=== PATIENT | male | born 1965 | race Caucasian/White ===

== ENCOUNTER 2017-08-21 14:26 | Emergency (ER) | payer MEDICAID ==
[2017-08-21] MEDS ORDERED: Sodium Chloride 0.9% 10 ML Syringe FLUSH PRN (14:33)
[2017-08-21 14:37] VITALS: BP 140/104
--- NOTE | 2017-08-21 15:18 | CT ---
Head CT Technique: Multiple axial sections through the brain were obtained. Intravenous contrast was not utilized. Comparison: No previous intracranial imaging. Findings: Ventricles along with basal cisterns and sulci over the convexities are mildly prominent. No abnormal parenchymal densities are seen. No evidence of intracranial hemorrhage. No midline shift or mass effect is seen. Bone window settings were reviewed which shows mild mucosal thickening within both maxillary sinuses and within the ethmoid sinuses. No air-fluid levels are seen within the paranasal sinuses. No acute calvarial abnormality is seen. Impression: 1. Sinus findings most likely representing mild chronic sinusitis. 2. Mild generalized atrophy. 3. No acute intracranial abnormality is appreciated. Diagnostic code #2
--- NOTE | 2017-08-21 15:42 | CT ---
CT cervical spine Technique: Multiple axial sections were obtained from above the C1 level inferiorly to the top of T2. Reconstructed sagittal and coronal images were reviewed. Comparison: No prior cervical spine imaging. Findings: Degenerative change is noted at C1-C2. Mild disc space narrowing is noted at C3-C4. Moderate to severe disc space narrowing is noted at C4-C5 with anterior plate and screws. Mild disc space narrowing at C5-C6 and C6-C7. Disc protrusion is seen into the superior C7 vertebral endplate. Mild diffuse degenerative change is noted within the apophyseal joints. Lucent defect with offset of the lamina at C7 on the left side. This appears to represent an old fracture as the ends are well corticated or could represent a developmental anomaly. This does not appear to be acute. Mild bilateral neural foraminal stenosis noted at C5-C6. Other neural foramina are fairly well patent. No bony central canal stenosis is seen. No abnormal subluxation is seen. AP view shows degenerative spurring within the uncovertebral joints at C4-C5, C5-C6 and C6-C7. Impression: 1. Lucent defect with offset within the left lamina at C7. As mentioned above, this either represents an old fracture or is developmental. 2. Prior surgery at C4-C5. 3. Mild degenerative change as noted above. 4. Nothing acute is appreciated on CT study of the cervical spine. Diagnostic code #3
[2017-08-21] MEDS ORDERED: LORazepam 2 MG/ML SDV IVPUSH ONE (16:00)
--- NOTE | 2017-08-21 16:07 | EDM.PDOC ---
ED HPI GENERAL MEDICAL PROBLEM - General Chief Complaint: Neuro Symptoms/Deficits Stated Complaint: [facility] Time Seen by Provider: 08/21/17 14:33 Source of Information: Reports: Patient, EMS History Limitations: Reports: No Limitations - History of Present Illness INITIAL COMMENTS - FREE TEXT/NARRATIVE: The patient came by [facility] ambulance for a seizure. He was at the [facility] and they noticed he was shaking and then he started having a tonic clonic seizure. That lasted a few minutes. EMS arrived and they gave him ativan 2mg IV. He was post ictal on arrival. He says for the past week he was drinking heavy with his brother. He drinks vodka and he last drank last night. He did hit his head. He is in a c-collar and backboard when he arrives. He has no fever, chills, cough, chest pain, shortness of breath, abdominal pain, or nausea. He has a history of neck surgery. Onset: Sudden Duration: Minutes: Location: Reports: Generalized Severity: Severe Improves with: Reports: None Worsens with: Reports: None Associated Symptoms: Reports: Headaches. Denies: Chest Pain, Cough, Fever/ Chills, Nausea/Vomiting, Shortness of Breath Treatments MAINTENANCE AND CUSTODIAN SUPERVISOR: Reports: Other Medication(s) Other Treatments MAINTENANCE AND CUSTODIAN SUPERVISOR: ativan by [facility] - Related Data Allergies Allergy/AdvReac Type Severity Reaction Status Date / Time Penicillins Allergy Other Verified 08/21/17 14:38 Home Meds: Home Meds Lisinopril 40 mg PO DAILY 09/06/15 [History] Folic Acid 1 mg PO BEDTIME tablet 09/07/15 [Rx] LORazepam [Ativan] 1 mg IVPUSH Q2H PRN #2 vial 09/07/15 [Rx] Multivitamins,Therapeutic [Thera] 1 each PO BEDTIME tablet 09/07/15 [Rx] Nicotine [Habitrol] 21 mg TRDERM DAILY patch 09/07/15 [Rx] Thiamine [Vitamin B-1] 100 mg PO BEDTIME tablet 09/07/15 [Rx] cloNIDine [Catapres] 0.1 mg PO Q8H PRN #0 tablet 09/07/15 [Rx] Ondansetron [Zofran ODT] 4 mg PO Q6H PRN #20 tab.dis 08/21/17 [Rx] Past Medical History - Past Health History Medical/Surgical History: Denies Medical/Surgical History HEENT History: Reports: Allergic Rhinitis Cardiovascular History: Reports: Hypertension Respiratory History: Reports: None Gastrointestinal History: Reports: None Genitourinary History: Reports: None Musculoskeletal History: Reports: None Neurological History: Reports: None Psychiatric History: Reports: Addiction, Depression, Suicidal Ideation Endocrine/Metabolic History: Reports: None Hematologic History: Reports: None Immunologic History: Reports: None Oncologic (Cancer) History: Reports: None Dermatologic History: Reports: None - Infectious Disease History Infectious Disease History: Reports: None - Past Surgical History Musculoskeletal Surgical History: Reports: Other (See Below) Social & Family History - Family History Family Medical History: Noncontributory Cardiac: Reports: Other (See Below) Other Cardiac Family History: valve replacement Oncologic: Reports: Esophageal, Lung, Renal - Tobacco Use Smoking Status *Q: Unknown Ever Smoked Years of Tobacco use: 30 Packs/Tins Daily: 1 - Caffeine Use Caffeine Use: Reports: Coffee - Alcohol Use Days Per Week of Alcohol Use: 7 Number of Drinks Per Day: 10 Total Drinks Per Week: 70 - Recreational Drug Use Recreational Drug Use: Yes Recreational Drug Type: Reports: Amphetamines (Speed), Marijuana/Hashish ED ROS GENERAL - Review of Systems Review Of Systems: See Below Constitutional: Reports: No Symptoms HEENT: Reports: No Symptoms Respiratory: Reports: No Symptoms Cardiovascular: Reports: No Symptoms Endocrine: Reports: No Symptoms GI/Abdominal: Reports: No Symptoms : Reports: No Symptoms Musculoskeletal: Reports: No Symptoms - Physical Exam Exam: See Below Exam Limited By: No Limitations General Appearance: Alert, No Apparent Distress Ears: Normal External Exam Nose: Normal Inspection Throat/Mouth: Other (Abrasion to the tongue) Head Exam: Other (Abrasion to the left side of his head) Neck: Normal Inspection, Supple, Non-Tender Respiratory/Chest: No Respiratory Distress, Lungs Clear, Normal Breath Sounds Cardiovascular: Normal Peripheral Pulses, Regular Rate, Rhythm, No Edema, No Murmur GI/Abdominal: Soft, Non-Tender, No Organomegaly, No Mass Neuro Exam (Abbreviated): Alert, Oriented, No Motor/Sensory Deficits Extremities: Normal Inspection Course - Vital Signs Last Recorded V/S: Last Vital Signs Temp 97.1 F 08/21/17 14:33 Pulse 117 H 08/21/17 14:33 Resp 18 08/21/17 14:33 BP 140/104 H 08/21/17 14:33 Pulse Ox 94 L 08/21/17 14:40 - Orders/Labs/Meds Orders: Active Orders 24 hr Category Date Time Status Cardiac Monitoring [RC] . DIRECTED Care 08/21/17 14:33 Active Peripheral IV Care [RC] . DIRECTED Care 08/21/17 14:34 Active Sodium Chloride 0.9% [Saline Flush] Med 08/21/17 14:33 Active 10 ml FLUSH ASDIRECTED PRN Peripheral IV Insertion Adult [OM.PC] Stat Oth 08/21/17 14:33 Ordered Medication Orders Sodium Chloride (Saline Flush) 10 ml FLUSH ASDIRECTED PRN PRN Reason: Keep Vein Open Last Admin: 08/21/17 14:40 Dose: 10 ml Labs: Laboratory Tests 08/21/17 08/21/17 Range/Units 15:10 15:10 WBC 3.95 L (4.23-9.07) K/mm3 RBC 4.64 (4.63-6.08) M/mm3 Hgb 13.8 (13.7-17.5) gm/L Hct 40.5 (40.1-51.0) % MCV 87.3 (79.0-92.2) fl MCH 29.7 (25.7-32.2) pg MCHC 34.1 (32.2-35.5) g/dl RDW Std Deviation 47.5 H (35.1-43.9) fL Plt Count 66 L (163-337) K/mm3 MPV 10.1 (9.4-12.3) fl Neut % (Auto) 78.7 H (34.0-67.9) % Lymph % (Auto) 5.8 L (21.8-53.1) % Roberts % (Auto) 14.7 H (5.3-12.2) % Eos % (Auto) 0 L (0.8-7.0) Baso % (Auto) 0.5 (0.1-1.2) % Neut # (Auto) 3.11 (1.78-5.38) K/mm3 Lymph # (Auto) 0.23 L (1.32-3.57) K/mm3 Roberts # (Auto) 0.58 (0.30-0.82) K/mm3 Eos # (Auto) 0.00 L (0.04-0.54) K/mm3 Baso # (Auto) 0.02 (0.01-0.08) K/mm3 Manual Slide Review Abnormal smear Sodium 131 L (136-145) mEq/L Potassium 4.0 (3.5-5.1) mEq/L Chloride 94 L (98-107) mEq/L Carbon Dioxide 22 (21-32) mEq/L Anion Gap 19.0 H (5-15) BUN 8 (7-18) mg/dL Creatinine 1.0 (0.7-1.3) mg/dL Est Cr Clr Drug Dosing 104.88 mL/min Estimated GFR (MDRD) > 60 (>60) mL/min BUN/Creatinine Ratio 8.0 L (14-18) Glucose 114 H (74-106) mg/dL Calcium 9.8 (8.5-10.1) mg/dL Magnesium 1.7 L (1.8-2.4) mg/dl Total Bilirubin 1.6 H (0.2-1.0) mg/dL AST 230 H (15-37) U/L ALT 148 H (16-63) U/L Alkaline Phosphatase 145 H (46-116) U/L Total Protein 7.8 (6.4-8.2) g/dl Albumin 3.7 (3.4-5.0) g/dl Globulin 4.1 gm/dL Albumin/Globulin Ratio 0.9 L (1-2) Ethyl Alcohol 0.00 (0.00) gm% Meds: Medications Generic Name Dose Route Start Last Admin Trade Name Freq PRN Reason Stop Dose Admin Sodium Chloride 10 ml 08/21/17 14:33 08/21/17 14:40 Saline Flush FLUSH 10 ml ASDIRECTED PRN Administration Keep Vein Open Discontinued Medications Generic Name Dose Route Start Last Admin Trade Name Freq PRN Reason Stop Dose Admin Lorazepam 0.5 mg 08/21/17 16:00 08/21/17 16:07 Ativan IVPUSH 08/21/17 16:01 0.5 mg ONETIME ONE Administration - Re-Assessments/Exams Free Text/Narrative Re-Assessment/Exam: 08/21/17 16:09 I ordered an IV NS, CT of his head and cervical spine, and labs. His WBC was low at 3.95. His platelets were low at 66. His Na was low at 131. His anion gap was elevated at 19. His glucose was elevated at 114. His magnesium was low at 1.7. His total bili was elevated at 1.6. His AST was elevated at 230. His ALT was elevated at 148 along with his Alk Phos at 145. His ETOH was 0. He had a withdrawal seizure. I will give him another dose of ativan here and I will get him on some ativan and zofran for at home. Departure - Departure Time of Disposition: 16:15 Disposition: Home, Self-Care 01 Condition: Good Clinical Impression: Alcohol abuse Alcohol withdrawal seizure Qualifiers: Complication of substance-induced condition: uncomplicated Qualified Code(s): F10.230 - Alcohol dependence with withdrawal, uncomplicated - Discharge Information Prescriptions: Ondansetron [Zofran ODT] 4 mg PO Q6H PRN #20 tab.dis PRN Reason: Nausea\vomiting Referrals: PCP,None [Primary Care Provider] - Tammie Matamoros PA [Physician Curbstone Setter] - 1 Week Forms: ED Department Discharge Additional Instructions: Take the ativan as prescribed to help you stop drinking. Take the zofran as needed for nausea or vomiting. Call [facility] to get help with drinking. Their number is . Please return if you are worse. - My Orders Last 24 Hours: My Active Orders 08/21/17 14:33 Cardiac Monitoring [RC] . DIRECTED Sodium Chloride 0.9% [Saline Flush] 10 ml FLUSH ASDIRECTED PRN Peripheral IV Insertion Adult [OM.PC] Stat 08/21/17 14:34 Peripheral IV Care [RC] . DIRECTED - Assessment/Plan Last 24 Hours: My Active Orders 08/21/17 14:33 Cardiac Monitoring [RC] . DIRECTED Sodium Chloride 0.9% [Saline Flush] 10 ml FLUSH ASDIRECTED PRN Peripheral IV Insertion Adult [OM.PC] Stat 08/21/17 14:34 Peripheral IV Care [RC] . DIRECTED
== END 2017-08-21 16:28 | disposition home or self-care (01) ==
LOC: JD.ED 14:26
DX: G40.409 Other generalized epilepsy and epileptic syndromes, not intractable, without status epilepticus (principal); F10.230 Alcohol dependence with withdrawal, uncomplicated; D69.6 Thrombocytopenia, unspecified; I10 Essential (primary) hypertension; Z88.0 Allergy status to penicillin; Z79.899 Other long term (current) drug therapy
CPT/HCPCS: 36415; 70450; 72125; 80053; 83735; 85025; 96374; 99285; G0480; J2060; J7050; 99284

== ENCOUNTER 2018-07-01 06:30 | Emergency (ER) | payer MEDICAID ==
[2018-07-01] MEDS ORDERED: Famotidine 20 MG Tab PO ONE (07:14)
[2018-07-01] MEDS ORDERED: Ondansetron 4 MG Tab.DIS PO ONE (07:14)
[2018-07-01 07:54] VITALS: BP 139/92
--- NOTE | 2018-07-01 08:46 | EDM.PDOCBH ---
ED HPI GENERAL MEDICAL PROBLEM - General Chief Complaint: Drug or Alcohol Abuse Stated Complaint: [facility] Time Seen by Provider: 07/01/18 06:59 Source of Information: Reports: Patient, EMS History Limitations: Reports: Intoxication - History of Present Illness INITIAL COMMENTS - FREE TEXT/NARRATIVE: The patient presents by [facility] for intoxication. He has been drinking heavily for 3 days. He has been drinking vodka and gin. He las drank last night. He says he has some pain issues and that is why he has been drinking so heavily. He also says that made him depressed. I asked him if he had thoughts of hurting himself or anyone else and he said no. He has been nauseated and vomited. He did not see any blood. He has some epigastric abdominal pain. He has a history of alcoholism. He also will have seizures when withdrawing. He said he got pandey bite in his toes last week. He is worried he may have a blood infection. When I go into the room, he is eating some ice chips. Onset: Gradual Duration: Day(s): (3) Location: Reports: Abdomen Quality: Reports: Ache Severity: Mild Improves with: Reports: None Worsens with: Reports: None Associated Symptoms: Reports: Nausea/Vomiting. Denies: Chest Pain, Fever/Chills Back Pain Score (Numeric/FACES): 7 - Related Data Allergies Allergy/AdvReac Type Severity Reaction Status Date / Time Penicillins Allergy Other Verified 07/01/18 06:49 Home Meds: Home Meds Lisinopril 40 mg PO DAILY 09/06/15 [History] Folic Acid 1 mg PO BEDTIME tablet 09/07/15 [Rx] LORazepam [Ativan] 1 mg IVPUSH Q2H PRN #2 vial 09/07/15 [Rx] Multivitamins,Therapeutic [Thera] 1 each PO BEDTIME tablet 09/07/15 [Rx] Nicotine [Habitrol] 21 mg TRDERM DAILY patch 09/07/15 [Rx] Thiamine [Vitamin B-1] 100 mg PO BEDTIME tablet 09/07/15 [Rx] cloNIDine [Catapres] 0.1 mg PO Q8H PRN #0 tablet 09/07/15 [Rx] Ondansetron [Zofran ODT] 4 mg PO Q6H PRN #20 tab.dis 08/21/17 [Rx] Past Medical History - Past Health History Medical/Surgical History: Denies Medical/Surgical History HEENT History: Reports: Allergic Rhinitis Cardiovascular History: Reports: Hypertension Respiratory History: Reports: None Gastrointestinal History: Reports: None Genitourinary History: Reports: None Musculoskeletal History: Reports: None Neurological History: Reports: None Psychiatric History: Reports: Addiction, Depression, Suicidal Ideation Endocrine/Metabolic History: Reports: None Hematologic History: Reports: None Immunologic History: Reports: None Oncologic (Cancer) History: Reports: None Dermatologic History: Reports: None - Infectious Disease History Infectious Disease History: Reports: None - Past Surgical History Musculoskeletal Surgical History: Reports: Other (See Below) Social & Family History - Family History Family Medical History: Noncontributory Cardiac: Reports: Other (See Below) Other Cardiac Family History: valve replacement Oncologic: Reports: Esophageal, Lung, Renal - Tobacco Use Smoking Status *Q: Never Smoker - Caffeine Use Caffeine Use: Reports: Coffee - Recreational Drug Use Recreational Drug Use: Yes Drug Use in Last 12 Months: Yes Recreational Drug Type: Reports: Marijuana/Hashish ED ROS GENERAL - Review of Systems Review Of Systems: See Below Constitutional: Reports: No Symptoms HEENT: Reports: No Symptoms Respiratory: Reports: No Symptoms Cardiovascular: Reports: No Symptoms Endocrine: Reports: No Symptoms GI/Abdominal: Reports: Abdominal Pain, Nausea, Vomiting : Reports: No Symptoms Musculoskeletal: Reports: No Symptoms Skin: Reports: No Symptoms Neurological: Reports: No Symptoms ED EXAM, BEHAVIORAL HEALTH - Physical Exam Exam: See Below Exam Limited By: Intoxication General Appearance: Alert, No Apparent Distress Ears: Normal External Exam Nose: Normal Inspection Head: Atraumatic, Normocephalic Neck: Normal Inspection Respiratory/Chest: No Respiratory Distress, Lungs Clear, Normal Breath Sounds Cardiovascular: Regular Rate, Rhythm, No Edema, No Murmur GI/Abdominal: Soft, Non-Tender, No Organomegaly, No Mass Back Exam: Normal Inspection Extremities: Normal Inspection Neurological: Alert, No Motor/Sensory Deficits, Oriented x 3 COURSE, BEHAVIORAL HEALTH COMP - Course Vital Signs: Last Vital Signs Temp 97.5 F 07/01/18 06:44 Pulse 115 H 07/01/18 06:44 Resp 16 07/01/18 06:44 BP 139/92 H 07/01/18 07:50 Pulse Ox 95 07/01/18 06:44 Orders, Labs, Meds: Active Orders 24 hr Category Date Time Status Cardiac Monitoring [RC] . DIRECTED Care 07/01/18 07:13 Active Laboratory Tests 07/01/18 07/01/18 07/01/18 Range/Units 07:20 07:20 07:20 WBC 5.80 (4.23-9.07) K/mm3 RBC 5.05 (4.63-6.08) M/mm3 Hgb 14.8 (13.7-17.5) gm/L Hct 42.8 (40.1-51.0) % MCV 84.8 (79.0-92.2) fl MCH 29.3 (25.7-32.2) pg MCHC 34.6 (32.2-35.5) g/dl RDW Std Deviation 42.1 (35.1-43.9) fL Plt Count 101 L (163-337) K/mm3 MPV 10.9 (9.4-12.3) fl Neut % (Auto) 53.0 (34.0-67.9) % Lymph % (Auto) 31.9 (21.8-53.1) % Kane % (Auto) 13.4 H (5.3-12.2) % Eos % (Auto) 1.0 (0.8-7.0) Baso % (Auto) 0.5 (0.1-1.2) % Neut # (Auto) 3.07 (1.78-5.38) K/mm3 Lymph # (Auto) 1.85 (1.32-3.57) K/mm3 Kane # (Auto) 0.78 (0.30-0.82) K/mm3 Eos # (Auto) 0.06 (0.04-0.54) K/mm3 Baso # (Auto) 0.03 (0.01-0.08) K/mm3 Sodium 135 L (136-145) mEq/L Potassium 3.9 (3.5-5.1) mEq/L Chloride 98 (98-107) mEq/L Carbon Dioxide 22 (21-32) mEq/L Anion Gap 18.9 H (5-15) BUN 7 (7-18) mg/dL Creatinine 0.9 (0.7-1.3) mg/dL Est Cr Clr Drug Dosing TNP Estimated GFR (MDRD) > 60 (>60) mL/min BUN/Creatinine Ratio 7.8 L (14-18) Glucose 114 H (74-106) mg/dL Calcium 9.0 (8.5-10.1) mg/dL Total Bilirubin 0.6 (0.2-1.0) mg/dL AST 106 H (15-37) U/L ALT 81 H (16-63) U/L Alkaline Phosphatase 153 H (46-116) U/L C-Reactive Protein < 0.2 (<1.0) mg/dL Total Protein 8.1 (6.4-8.2) g/dl Albumin 3.7 (3.4-5.0) g/dl Globulin 4.4 gm/dL Albumin/Globulin Ratio 0.8 L (1-2) Salicylates (2.8-20) mg/dL Urine Opiates Screen (DPTOTM=928) Ur Buprenorphine Scrn (CUTOFF=10) Ur Oxycodone Screen (PWJ5WA=936) Urine Methadone Screen (ZQX7ZT=026) Ur Propoxyphene Screen (JOPAMK=760) Acetaminophen 0 L (10-30) ug/mL Ur Barbiturates Screen (KIYCOZ=474) Ur Tricyclics Screen (FHQJID=283) Ur Phencyclidine Scrn (CUTOFF=25) Ur Amphetamine Screen (MCXWNP=503) U Methamphetamines Scrn (WUBJYC=183) U Benzodiazepines Scrn (MSCENK=487) U Cocaine Metab Screen (SOFLCQ=107) U Marijuana (THC) Screen (CUTOFF=50) Ethyl Alcohol 0.36 (0.00) gm% 07/01/18 07/01/18 Range/Units 07:20 07:23 WBC (4.23-9.07) K/mm3 RBC (4.63-6.08) M/mm3 Hgb (13.7-17.5) gm/L Hct (40.1-51.0) % MCV (79.0-92.2) fl MCH (25.7-32.2) pg MCHC (32.2-35.5) g/dl RDW Std Deviation (35.1-43.9) fL Plt Count (163-337) K/mm3 MPV (9.4-12.3) fl Neut % (Auto) (34.0-67.9) % Lymph % (Auto) (21.8-53.1) % Kane % (Auto) (5.3-12.2) % Eos % (Auto) (0.8-7.0) Baso % (Auto) (0.1-1.2) % Neut # (Auto) (1.78-5.38) K/mm3 Lymph # (Auto) (1.32-3.57) K/mm3 Kane # (Auto) (0.30-0.82) K/mm3 Eos # (Auto) (0.04-0.54) K/mm3 Baso # (Auto) (0.01-0.08) K/mm3 Sodium (136-145) mEq/L Potassium (3.5-5.1) mEq/L Chloride (98-107) mEq/L Carbon Dioxide (21-32) mEq/L Anion Gap (5-15) BUN (7-18) mg/dL Creatinine (0.7-1.3) mg/dL Est Cr Clr Drug Dosing Estimated GFR (MDRD) (>60) mL/min BUN/Creatinine Ratio (14-18) Glucose (74-106) mg/dL Calcium (8.5-10.1) mg/dL Total Bilirubin (0.2-1.0) mg/dL AST (15-37) U/L ALT (16-63) U/L Alkaline Phosphatase (46-116) U/L C-Reactive Protein (<1.0) mg/dL Total Protein (6.4-8.2) g/dl Albumin (3.4-5.0) g/dl Globulin gm/dL Albumin/Globulin Ratio (1-2) Salicylates 2.3 L (2.8-20) mg/dL Urine Opiates Screen Negative (PSDBQA=202) Ur Buprenorphine Scrn Negative (CUTOFF=10) Ur Oxycodone Screen Negative (LSE7LM=427) Urine Methadone Screen Negative (ERD7PA=164) Ur Propoxyphene Screen Negative (SULDNV=396) Acetaminophen (10-30) ug/mL Ur Barbiturates Screen Negative (XLSWVP=761) Ur Tricyclics Screen Negative (IYOFRE=078) Ur Phencyclidine Scrn Negative (CUTOFF=25) Ur Amphetamine Screen Negative (CEXZOR=628) U Methamphetamines Scrn Negative (OOOQPI=666) U Benzodiazepines Scrn Negative (NAMUAA=815) U Cocaine Metab Screen Negative (QWCKRY=875) U Marijuana (THC) Screen Negative (CUTOFF=50) Ethyl Alcohol (0.00) gm% Medications Discontinued Medications Generic Name Dose Route Start Last Admin Trade Name Giovani PRN Reason Stop Dose Admin Famotidine 20 mg 07/01/18 07:14 07/01/18 07:32 Pepcid PO 07/01/18 07:15 20 mg ONETIME ONE Administration Ondansetron HCl 4 mg 07/01/18 07:14 07/01/18 07:32 Zofran Odt PO 07/01/18 07:15 4 mg ONETIME ONE Administration Re-Assessment/Re-Exam: I ordered zofran 4mg ODT, pepcid 20mg PO, and labs. His platelets were low at 101. His Na was low at 135. His anion gap was elevated at 18.9. His AST was elevated at 106. His ALT was elevated at 81. His CRP was normal. His UDS was negative. His salicylates were normal. His acetaminophen was zero. His ETOH was 0.36. He is talking and walking okay. He is trying to get a ride. He is not suicidal at this time. He has just been depressed. His girlfriend also left him. He is feeling better but for now he does not have a place to go. [place] We will send him to senior care to detox. Departure - Departure Time of Disposition: 09:50 Disposition: Home, Self-Care 01 Condition: Good Clinical Impression: Alcohol abuse Alcohol intoxication Qualifiers: Complication of substance-induced condition: uncomplicated Qualified Code(s): F10.920 - Alcohol use, unspecified with intoxication, uncomplicated - Discharge Information *PRESCRIPTION DRUG MONITORING PROGRAM REVIEWED*: Not Applicable *COPY OF PRESCRIPTION DRUG MONITORING REPORT IN PATIENT MAL[place]: Not Applicable Referrals: PCP,None [Primary Care Provider] - Diane Parker PA-C [Physician Wood Molder] - 1 Week Additional Instructions: Contact [facility] [place] to get help with your drinking. Their number is [phone]. Please return if you are worse. - My Orders Last 24 Hours: My Active Orders 07/01/18 07:13 Cardiac Monitoring [RC] . DIRECTED - Assessment/Plan Last 24 Hours: My Active Orders 07/01/18 07:13 Cardiac Monitoring [RC] . DIRECTED
== END 2018-07-01 11:34 | disposition home or self-care (01) ==
LOC: JD.ED 06:30
DX: F10.129 Alcohol abuse with intoxication, unspecified (principal); I10 Essential (primary) hypertension; Z88.0 Allergy status to penicillin; Z79.899 Other long term (current) drug therapy; Y90.8 Blood alcohol level of 240 mg/100 ml or more
CPT/HCPCS: 36415; 80053; 80306; 85025; 86140; 99284; A9270; G0480; 99283

== ENCOUNTER 2018-09-01 20:13 | Emergency (ER) | payer SELFPAY ==
[2018-09-01 20:37] VITALS: BP 133/88
--- NOTE | 2018-09-01 21:57 | EDM.PDOCBH ---
ED HPI GENERAL MEDICAL PROBLEM - General Chief Complaint: Behavioral/Psych Stated Complaint: HEALTH CHECK Time Seen by Provider: 09/01/18 20:41 Source of Information: Reports: Patient History Limitations: Reports: No Limitations - History of Present Illness INITIAL COMMENTS - FREE TEXT/NARRATIVE: 53 yo M brought in by for threats of suicide after calling the suicide hotline today. He has a history of this and has been seen here before for the same issue. He states he calls the suicide hotline because "they always cherry picker operator the phone" and "I have no one else to talk to". He says all of his friends have "moved or " and his family "doesn't like me" so he has no one to talk to when he feels "bored, depressed and lonely" therefore he calls the suicide hotline. He denies being suicidal, homicidal, or having a plan at this time. He currently does not have a job due to his chronic back pain and states the pain is why he drinks. He states he had 2 Bloody Suni's earlier today. He also states he has no money for the back surgery so he is stuck. He wants to find a solution to his problems. He is willing to talk with a health social work professor/ [place] if they can help him. He was given their number at a previous visit but states "if I don't put it in my phone I forget". Will give him the number again and make sure he adds it to his phone. No other concerns at this time. Neck Pain Score (Numeric/FACES): 8 - Related Data Allergies Allergy/AdvReac Type Severity Reaction Status Date / Time Penicillins Allergy Other Verified 09/01/18 20:51 Home Meds: Home Meds Lisinopril 40 mg PO DAILY 09/06/15 [History] Folic Acid 1 mg PO BEDTIME tablet 09/07/15 [Rx] LORazepam [Ativan] 1 mg IVPUSH Q2H PRN #2 vial 09/07/15 [Rx] Multivitamins,Therapeutic [Thera] 1 each PO BEDTIME tablet 09/07/15 [Rx] Nicotine [Habitrol] 21 mg TRDERM DAILY patch 09/07/15 [Rx] Thiamine [Vitamin B-1] 100 mg PO BEDTIME tablet 09/07/15 [Rx] cloNIDine [Catapres] 0.1 mg PO Q8H PRN #0 tablet 09/07/15 [Rx] Ondansetron [Zofran ODT] 4 mg PO Q6H PRN #20 tab.dis 08/21/17 [Rx] Past Medical History - Past Health History Medical/Surgical History: Denies Medical/Surgical History HEENT History: Reports: Allergic Rhinitis Cardiovascular History: Reports: Hypertension Respiratory History: Reports: None Gastrointestinal History: Reports: None Genitourinary History: Reports: None Musculoskeletal History: Reports: Back Pain, Chronic, Other (See Below) Other Musculoskeletal History: chronic neck pain Neurological History: Reports: None Psychiatric History: Reports: Addiction, Depression, Suicidal Ideation Endocrine/Metabolic History: Reports: None Hematologic History: Reports: None Immunologic History: Reports: None Oncologic (Cancer) History: Reports: None Dermatologic History: Reports: None - Infectious Disease History Infectious Disease History: Reports: None - Past Surgical History Musculoskeletal Surgical History: Reports: Other (See Below) Other Musculoskeletal Surgeries/Procedures:: neck surgery Social & Family History - Family History Family Medical History: Noncontributory Cardiac: Reports: Other (See Below) Other Cardiac Family History: valve replacement Oncologic: Reports: Esophageal, Lung, Renal - Caffeine Use Caffeine Use: Reports: None - Alcohol Use Date of Last Drink: 09/01/18 - Recreational Drug Use Recreational Drug Use: No ED ROS GENERAL - Review of Systems Review Of Systems: ROS reveals no pertinent complaints other than HPI. ED EXAM, BEHAVIORAL HEALTH - Physical Exam Exam: See Below Exam Limited By: No Limitations General Appearance: Alert, WD/WN, No Apparent Distress Eye Exam: Bilateral Eye: EOMI, Normal Inspection, PERRL Ears: Normal External Exam, Hearing Grossly Normal Head: Atraumatic, Normocephalic Respiratory/Chest: No Respiratory Distress, Lungs Clear, Normal Breath Sounds, No Accessory Muscle Use, Chest Non-Tender Cardiovascular: Normal Peripheral Pulses, Regular Rate, Rhythm Back Exam: Normal Inspection Neurological: Alert, Normal Mood/Affect, CN II-XII Intact, Normal Cognition, Normal Gait, Normal Reflexes, No Motor/Sensory Deficits, Oriented x 3 Psychiatric: Alert, Normal Affect, Normal Cognition, Oriented, Depressed Mood, Poor Eye Contact. No: Homicidal Thoughts, Suicidal Plan, Suicidal Thoughts Skin Exam: Warm, Dry, Intact COURSE, BEHAVIORAL HEALTH COMP - Course Vital Signs: Last Vital Signs Temp 97.6 F 09/01/18 20:33 Pulse 140 H 09/01/18 20:33 Resp 18 09/01/18 20:33 BP 133/88 09/01/18 20:33 Pulse Ox 94 L 09/01/18 20:33 Orders, Labs, Meds: Laboratory Tests 09/01/18 09/01/18 09/01/18 Range/Units 21:30 21:30 21:30 WBC 3.56 L (4.23-9.07) K/mm3 RBC 4.87 (4.63-6.08) M/mm3 Hgb 14.3 (13.7-17.5) gm/L Hct 41.7 (40.1-51.0) % MCV 85.6 (79.0-92.2) fl MCH 29.4 (25.7-32.2) pg MCHC 34.3 (32.2-35.5) g/dl RDW Std Deviation 45.0 H (35.1-43.9) fL Plt Count 178 (163-337) K/mm3 MPV 10.2 (9.4-12.3) fl Neut % (Auto) 48.9 (34.0-67.9) % Lymph % (Auto) 37.6 (21.8-53.1) % [place] % (Auto) 9.6 (5.3-12.2) % Eos % (Auto) 3.1 (0.8-7.0) Baso % (Auto) 0.8 (0.1-1.2) % Neut # (Auto) 1.74 L (1.78-5.38) K/mm3 Lymph # (Auto) 1.34 (1.32-3.57) K/mm3 [place] # (Auto) 0.34 (0.30-0.82) K/mm3 Eos # (Auto) 0.11 (0.04-0.54) K/mm3 Baso # (Auto) 0.03 (0.01-0.08) K/mm3 Sodium 133 L (136-145) mEq/L Potassium 4.2 (3.5-5.1) mEq/L Chloride 97 L (98-107) mEq/L Carbon Dioxide 22 (21-32) mEq/L Anion Gap 18.2 H (5-15) BUN 7 (7-18) mg/dL Creatinine 0.7 (0.7-1.3) mg/dL Est Cr Clr Drug Dosing 142.51 mL/min Estimated GFR (MDRD) > 60 (>60) mL/min BUN/Creatinine Ratio 10.0 L (14-18) Glucose 104 (74-106) mg/dL Calcium 9.0 (8.5-10.1) mg/dL Total Bilirubin 0.5 (0.2-1.0) mg/dL AST 43 H (15-37) U/L ALT 38 (16-63) U/L Alkaline Phosphatase 128 H (46-116) U/L Total Protein 8.4 H (6.4-8.2) g/dl Albumin 3.8 (3.4-5.0) g/dl Globulin 4.6 gm/dL Albumin/Globulin Ratio 0.8 L (1-2) TSH 3rd Generation 0.921 (0.358-3.74) uIU/mL Salicylates 0.7 L (2.8-20) mg/dL Urine Opiates Screen (ALTPUS=288) Ur Buprenorphine Scrn (CUTOFF=10) Ur Oxycodone Screen (ITR0ZR=311) Urine Methadone Screen (GLA2HN=914) Ur Propoxyphene Screen (ZWTHYT=120) Ur Barbiturates Screen (UHJNRD=355) Ur Tricyclics Screen (HBDRSR=453) Ur Phencyclidine Scrn (CUTOFF=25) Ur Amphetamine Screen (ZPZVQD=106) U Methamphetamines Scrn (XTWQVS=051) U Benzodiazepines Scrn (DXDLXI=448) U Cocaine Metab Screen (IFVAHN=238) U Marijuana (THC) Screen (CUTOFF=50) Ethyl Alcohol 0.34 (0.00) gm% 09/01/18 Range/Units 21:55 WBC (4.23-9.07) K/mm3 RBC (4.63-6.08) M/mm3 Hgb (13.7-17.5) gm/L Hct (40.1-51.0) % MCV (79.0-92.2) fl MCH (25.7-32.2) pg MCHC (32.2-35.5) g/dl RDW Std Deviation (35.1-43.9) fL Plt Count (163-337) K/mm3 MPV (9.4-12.3) fl Neut % (Auto) (34.0-67.9) % Lymph % (Auto) (21.8-53.1) % [place] % (Auto) (5.3-12.2) % Eos % (Auto) (0.8-7.0) Baso % (Auto) (0.1-1.2) % Neut # (Auto) (1.78-5.38) K/mm3 Lymph # (Auto) (1.32-3.57) K/mm3 [place] # (Auto) (0.30-0.82) K/mm3 Eos # (Auto) (0.04-0.54) K/mm3 Baso # (Auto) (0.01-0.08) K/mm3 Sodium (136-145) mEq/L Potassium (3.5-5.1) mEq/L Chloride (98-107) mEq/L Carbon Dioxide (21-32) mEq/L Anion Gap (5-15) BUN (7-18) mg/dL Creatinine (0.7-1.3) mg/dL Est Cr Clr Drug Dosing mL/min Estimated GFR (MDRD) (>60) mL/min BUN/Creatinine Ratio (14-18) Glucose (74-106) mg/dL Calcium (8.5-10.1) mg/dL Total Bilirubin (0.2-1.0) mg/dL AST (15-37) U/L ALT (16-63) U/L Alkaline Phosphatase (46-116) U/L Total Protein (6.4-8.2) g/dl Albumin (3.4-5.0) g/dl Globulin gm/dL Albumin/Globulin Ratio (1-2) TSH 3rd Generation (0.358-3.74) uIU/mL Salicylates (2.8-20) mg/dL Urine Opiates Screen Negative (ZHJLEZ=582) Ur Buprenorphine Scrn Negative (CUTOFF=10) Ur Oxycodone Screen Negative (DYW5BA=049) Urine Methadone Screen Negative (GAZ5NT=286) Ur Propoxyphene Screen Negative (NOWUCE=686) Ur Barbiturates Screen Negative (WOJDFW=479) Ur Tricyclics Screen Negative (KTTXMM=184) Ur Phencyclidine Scrn Negative (CUTOFF=25) Ur Amphetamine Screen Negative (UROGXI=251) U Methamphetamines Scrn Negative (FSFAAI=172) U Benzodiazepines Scrn Negative (BGBJUP=029) U Cocaine Metab Screen Negative (BWJLWD=623) U Marijuana (THC) Screen Negative (CUTOFF=50) Ethyl Alcohol (0.00) gm% Re-Assessment/Re-Exam: CBC, CMP, TSH all WNL Urine drug screen negative Salicylates WNL EtOH 0.34 Departure - Departure Time of Disposition: 22:15 Disposition: Home, Self-Care 01 Condition: Fair Clinical Impression: Alcohol intoxication Qualifiers: Complication of substance-induced condition: uncomplicated Qualified Code(s): F10.920 - Alcohol use, unspecified with intoxication, uncomplicated - Discharge Information *PRESCRIPTION DRUG MONITORING PROGRAM REVIEWED*: Not Applicable *COPY OF PRESCRIPTION DRUG MONITORING REPORT IN PATIENT [place]: Not Applicable Instructions: Alcohol Intoxication, [id number]-[id number], Chronic Back Pain, Easy-to- Read Referrals: PCP,None [Primary Care Provider] - Forms: ED Department Discharge Additional Instructions: You were seen in the ED today after calling the suicide hotline and having the police bring you in for threats of suicide. However, after talking with you, it is clear you are not currently suicidal. You stated you called the hotline because you were "bored, depressed and lonely". You also admitted to drinking earlier today. At this time, you are stable enough to go home. It is recommended you call [facility] and/or [facility] [employer] in order to get help with your financial issues regarding getting your back pain managed. This may also help you regain a job as well as get control of your drinking. Recommend follow up with your primary care physician as well. Please return to the ED if new or worsening symptoms. [facility] [employer]
== END 2018-09-01 23:10 | disposition home or self-care (01) ==
LOC: JD.ED 20:13
DX: F10.929 Alcohol use, unspecified with intoxication, unspecified (principal); I10 Essential (primary) hypertension; F32.9 Major depressive disorder, single episode, unspecified; Z88.0 Allergy status to penicillin; Z79.899 Other long term (current) drug therapy; Y90.8 Blood alcohol level of 240 mg/100 ml or more
CPT/HCPCS: 36415; 80053; 80306; 84443; 85025; 99285; G0480; 99282